=== PATIENT | female | born 1975 | race Caucasian/White ===

== ENCOUNTER 2020-11-20 08:37 | Outpatient (NON) | payer BC, MEDICAID, SELFPAY ==
[2020-11-20 14:14] LABS: Influenza Control Positive
== END 2020-11-20 08:38 ==
PROVIDERS: PCP Family Medicine; Visit Provider Physician Assistant Medical
DX: J06.9 Acute upper respiratory infection, unspecified (principal); R68.89 Other general symptoms and signs
CPT/HCPCS: 87804

== ENCOUNTER 2021-01-22 16:04 | Outpatient (CLI) | payer OTHER, BC, MEDICAID, SELFPAY ==
[2021-01-22 17:46] LABS: HIV 1/2 Ab P24 Ag Result Negative (Negative)
[2021-01-22 18:00] LABS: Hepatitis B Surface Antigen Negative (Negative)
[2021-01-22 18:05] LABS: Hepatitis B Core IgM Result Negative (Negative)
[2021-01-22 18:18] LABS: Hepatitis C Virus Antibody Negative (Negative)
== END 2021-01-22 16:05 | disposition home or self-care (01) ==
LOC: ANHLAB 16:09
PROVIDERS: PCP Family Medicine; Visit Provider Internal Medicine
DX: Z11.9 Encounter for screening for infectious and parasitic diseases, unspecified (principal); Z11.4 Encounter for screening for human immunodeficiency virus [HIV]; W46.0XXA Contact with hypodermic needle, initial encounter
CPT/HCPCS: 36415; 86703; 86705; 86803; 87340; G0432

== ENCOUNTER 2022-02-06 11:14 | Outpatient (CLI) | payer OTHER, SELFPAY ==
--- NOTE | ~2022-02-06 | XR_ITS ---
EXAMINATION: XR foot LT 2V, XR foot RT 2V DATE: 02/06/2022 11:33 INDICATION: Unspecified bilateral foot pain TECHNIQUE: 1. Dorsoplantar and lateral views of the left foot were obtained. 2. Dorsoplantar and lateral views of the right foot were obtained. COMPARISON: None. FINDINGS: Alignment is normal at both feet. No fracture. Joint spaces are normal. No erosions or periosteal gabriel ction. Soft tissues are unremarkable with no ankle joint effusions. IMPRESSION: 1. Negative bilateral foot radiographs. Reviewed, dictated and finalized at location B. IMPRESSION: 1. Negative bilateral foot radiographs.
== END 2022-02-06 11:15 | disposition home or self-care (01) ==
PROVIDERS: PCP Family Medicine; Visit Provider Nurse Practitioner Family
DX: M79.673 Pain in unspecified foot (principal)
CPT/HCPCS: 73620

== ENCOUNTER 2022-07-14 07:16 | Outpatient (CLI) | payer BC, OTHER, SELFPAY ==
[2022-07-14 07:45] LABS: Hematocrit 41.5 % (37.0-47.0); Hemoglobin 13.8 g/dL (12.0-15.0); Mean Corpuscular HGB Conc 33.3 g/dl (32-36); Mean Corpuscular Volume 93.3 fl (80-100); Mean Platelet Volume 10.3 fl (7.4-10.4); Platelet Count Result 284 k/mm3 (150-375); Red Blood Count 4.45 M/mm3 (4.2-5.4); Red Cell Distribution Width 12.5 % (11.5-14.5); White Blood Count 10.5 K/mm3 (4.5-10.0)
[2022-07-14 07:48] LABS: Glucose 94 mg/dL (65-110)
[2022-07-14 08:00] LABS: Iron 69 ug/dL (37-170)
[2022-07-14 08:30] LABS: Vitamin D 25 Hydroxy 34.8 ng/mL
[2022-07-17 21:02] LABS: Insulin Level Total 6.6 uIU/mL (<=19.6)
== END 2022-07-14 07:17 | disposition home or self-care (01) ==
PROVIDERS: PCP Family Medicine; Visit Provider Nurse Practitioner Family
DX: E61.1 Iron deficiency (principal); R11.0 Nausea; R53.83 Other fatigue; R25.1 Tremor, unspecified
CPT/HCPCS: 36415; 82306; 82947; 83525; 83540; 84443; 85027

== ENCOUNTER 2023-01-30 12:17 | Outpatient (CLI) | payer OTHER, SELFPAY ==
[2023-01-30 12:46] LABS: Hematocrit 41.6 % (37.0-47.0); Hemoglobin 13.9 g/dL (12.0-15.0); Mean Corpuscular HGB Conc 33.4 g/dl (32-36); Mean Corpuscular Hemoglobin 31.2 pg (26-34); Mean Corpuscular Volume 93.3 fl (80-100); Platelet Count Result 349 k/mm3 (150-375); Red Blood Count 4.46 M/mm3 (4.2-5.4); Red Cell Distribution Width 12.6 % (11.5-14.5); White Blood Count 9.6 K/mm3 (4.5-10.0)
[2023-01-30 13:12] LABS: Alanine Aminotransferase 19 U/L (6-35); Albumin Level 4.1 g/dL (3.5-5.1); Alkaline Phosphatase 106 U/L (38-126); Anion Gap 5 mmol/L (8-16); Aspartate Amino Transferase 26 U/L (14-36); Bilirubin,Total 0.4 mg/dL (0.2-1.3); Blood Urea Nitrogen 9 mg/dL (7-17); Calcium 8.3 mg/dL (8.4-10.2); Carbon Dioxide 28 mmol/L (22-30); Chloride 105 mmol/L (98-107); Cholesterol 148 mg/dL (0-200); Estimated Glomerular Filt Rate > 60; Glucose 85 mg/dL (65-110); HDL Direct 46 mg/dL; Potassium 4.2 mmol/L (3.4-5.0); Sodium 138 mmol/L (137-145); Triglycerides 134 mg/dL (<150)
[2023-01-30 13:26] LABS: LDL Cholesterol Direct 80 mg/dL; Vitamin D 25 Hydroxy 36.3 ng/mL
[2023-02-03 12:43] LABS: Insulin Level Total 3.8 uIU/mL (<=19.6)
[2023-02-04 04:48] LABS: FSH 5.4 mIU/mL (***)
[2023-02-04 05:26] LABS: Testosterone Free 0.9 pg/mL (0.2-5.0)
[2023-02-08 15:37] LABS: Estrogen 981.8 pg/mL
== END 2023-01-30 12:18 | disposition home or self-care (01) ==
LOC: ANHLAB 12:18
PROVIDERS: PCP Family Medicine; Visit Provider Nurse Practitioner Family
DX: E55.9 Vitamin D deficiency, unspecified (principal); M79.7 Fibromyalgia; R63.5 Abnormal weight gain; F41.9 Anxiety disorder, unspecified; Z13.220 Encounter for screening for lipoid disorders; E61.1 Iron deficiency; E87.1 Hypo-osmolality and hyponatremia
CPT/HCPCS: 36415; 80053; 80061; 82306; 82672; 83001; 83525; 84402; 84443; 85027

== ENCOUNTER 2023-03-10 13:20 | Outpatient (CLI) | payer OTHER, SELFPAY ==
[2023-03-13 13:52] LABS: DHEA-Sulfate 99 mcg/dL (19-231)
[2023-03-14 11:59] LABS: Testosterone Total 23 ng/dL (2-45)
[2023-03-20 17:27] LABS: Alpha Fetoprotein Tumor Marker 2.5 ng/mL (<6.1)
[2023-03-21 03:14] LABS: Estradiol, Ultrasensitive 160 pg/mL
== END 2023-03-10 13:21 | disposition home or self-care (01) ==
PROVIDERS: PCP Family Medicine; Visit Provider Obstetrics & Gynecology
DX: N94.89 Other specified conditions associated with female genital organs and menstrual cycle (principal)
CPT/HCPCS: 36415; 82105; 82627; 82670; 84403

== ENCOUNTER 2023-03-12 15:26 | Outpatient (CLI) | payer OTHER, SELFPAY ==
--- NOTE | ~2023-03-12 | US_ITS ---
EXAMINATION: US pelvic complete w TV DATE: 03/12/2023 16:02 INDICATION: Elevated estradiol Comparison:No prior studies for comparison. TECHNIQUE: Multiple transabdominal and endovaginal sonographic images of the pelvis performed. 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 The left ovary is surgically absent. The right ovary is no t visualized. No free fluid in the pelvis. Bladder is unremarkable. No abnormal pelvic masses or flui d collections. IMPRESSION: 1. Unremarkable pelvic ultrasound. Reviewed, dictated and finalized at location L.
== END 2023-03-12 15:27 | disposition home or self-care (01) ==
PROVIDERS: PCP Family Medicine; Visit Provider Obstetrics & Gynecology
DX: R79.89 Other specified abnormal findings of blood chemistry (principal)
CPT/HCPCS: 76830; 76856

== ENCOUNTER 2024-03-04 13:31 | Outpatient (CLI) | payer OTHER, SELFPAY ==
[2024-03-04 15:06] LABS: Basophils Percent Auto 0.2 % (0.2-1.2); Eosinophils Absolute Auto 0.1 K/mm3 (0-0.3); Eosinophils Percent Auto 0.7 % (0-4.4); Hematocrit 42.5 % (37.0-47.0); Hemoglobin 14.1 g/dL (12.0-15.0); Immature Granulocyte Absolute 0.04 K/mm3 (0.00-0.031); Immature Granulocyte Percent A 0.4 % (0-0.5); Lymphocytes Absolute Auto 2.38 K/mm3 (0.9-3.2); Lymphocytes Percent Auto 24.7 % (18.3-44.2); Mean Corpuscular HGB Conc 33.2 g/dl (32-36); Mean Corpuscular Hemoglobin 30.9 pg (26-34); Mean Platelet Volume 10.7 fl (7.4-10.4); Monocytes Absolute Auto 0.5 K/mm3 (0.1-0.6); Monocytes Percent Auto 5.4 % (2.6-8.5); Neutrophils Absolute Auto 6.6 K/mm3 (1.3-6.7); Neutrophils Percent Auto 68.6 % (45.5-73.1); Platelet Count Result 314 k/mm3 (150-375); Red Blood Count 4.57 M/mm3 (4.2-5.4); Red Cell Distribution Width 12.8 % (11.5-14.5); White Blood Count 9.6 K/mm3 (4.5-10.0)
[2024-03-04 15:08] LABS: Appearance Urine Clear (Clear); Bilirubin Urine Negative (Negative); Blood Urine Negative (Negative); Color Urine Yellow (Yellow); Glucose Urine UA Negative (Negative); Ketones Urine Negative (Negative); Leukocyte Esterase Ur Negative LEU/UL (Negative); Nitrate Urine Negative (Negative); Protein Urine Negative (Negative); Specific Grav Ur 1.019 (1.001-1.035); Urobilinogen Urine 0.2 mg/dL (<2.0)
[2024-03-04 15:09] LABS: Add Urine Microscopic? NO
[2024-03-04 15:19] LABS: Alanine Aminotransferase 16 U/L (6-35); Albumin Level 4.2 g/dL (3.5-5.1); Alkaline Phosphatase 99 U/L (38-126); Anion Gap 7 mmol/L (4-12); Aspartate Amino Transferase 23 U/L (14-36); Bilirubin,Total 0.4 mg/dL (0.2-1.3); Blood Urea Nitrogen 12 mg/dL (7-17); CRP < 0.5 mg/dL (<1.0); Calcium 9.3 mg/dL (8.4-10.2); Carbon Dioxide 26 mmol/L (22-30); Chloride 105 mmol/L (98-107); Estimated Glomerular Filt Rate 59; Glucose 105 mg/dL (65-110); Magnesium 1.9 mg/dL (1.6-2.3); Potassium 3.7 mmol/L (3.4-5.0); Sodium 138 mmol/L (137-145)
[2024-03-04 15:59] LABS: Erythrocyte Sedimentation Rate 17 mm/hr (0-20)
[2024-03-06 06:25] LABS: Protein, Total 6.7 g/dL (6.1-8.1)
[2024-03-07 13:33] LABS: Albumin 3.9 g/dL (3.8-4.8); Alpha 1 Globulin 0.3 g/dL (0.2-0.3); Alpha 2 Globulin 0.7 g/dL (0.5-0.9); Beta 1 Globulin 0.4 g/dL (0.4-0.6); Gamma Globulin 1.1 g/dL (0.8-1.7)
== END 2024-03-04 13:32 | disposition home or self-care (01) ==
PROVIDERS: PCP Family Medicine
DX: M35.00 Sjogren syndrome, unspecified (principal)
CPT/HCPCS: 36415; 80053; 81003; 83735; 84155; 84165; 85025; 85652; 86140